=== PATIENT | male | born 1960 | race Caucasian/White ===

== ENCOUNTER → 2017-08-08 | Outpatient (CLI) | payer OTHER ==
[~2017-08-08] MED LIST: NS 100 ML IV 100 ML IV ONE
--- NOTE | 2017-08-08 21:54 | CT ---
CT abdomen and pelvis with IV and oral contrast. Indication: Left lower quadrant pain for 1 week Comparison: None Technique: Following the administration of both oral and IV contrast 5 mm axial images of the abdomen pelvis was performed. Coronal and sagittal reformats were provided from the original data set. Findings: Images of the lower lungs demonstrate tiny bilateral pleural effusions with bibasilar atele ctasis. Images of the subcutaneous tissues are unremarkable. There is atherosclerotic disease of the abdominal aorta without aneurysmal dilatation. The bone windows demonstrate mild multilevel discogeni c degenerative disease without aggressive lesion. Abdomen: The liver, gallbladder, spleen, pancreas and adrenal glands are unremarkable. The kidneys ar e unremarkable except for perinephric stranding. Pelvis: There is subtle mesenteric stranding adjacent to a diverticula seen at the junction of the si gmoid and descending colon. No evidence of abscess or free air is seen. Scattered diverticular are se en. It is there is no free pelvic fluid or adenopathy. The urinary bladder is unremarkable. Conclusion: 1. Subtle stranding adjacent to a sigmoid diverticulum suggest early acute diverticulitis without perforation or abscess. 2. Perinephric stranding is nonspecific considering there is no evidence of pyelonephritis, stone or hydronephrosis. However it may be contributing to the mesenteric stranding seen adjacent to the diver ticulum. Reported By:
== END ==
LOC: RAD 10:25
PROVIDERS: ATTEND Internal Medicine
DX: R10.32 Left lower quadrant pain (principal)
CPT/HCPCS: 74177; A4222

== ENCOUNTER 2017-10-09 13:12 | Emergency (ER) | payer OTHER ==
[2017-10-09 13:23] VITALS: BMI 31.2
--- NOTE | 2017-10-09 14:12 | DR.GENAD ---
HPI - PCP Primary Care Physician: BRENDA - HPI Comment HPI Comment: PATIENT WITH INCREASING EDEMA THAT IS CAUSING PAIN TO LOWER EXTREMITIES AND BP. IN BEING RUNNING HIGH. PTIENT DENIES CHEST PAIN. HAVE SOB. NO FEVER. - Complaint/Symptoms Chief Complaint Doctors Comments: EDEMA LOWER EXTREMITIES AND ELEVATED BP. Chief Complaint:: PT C/O SWELLING TO BILAT LOWER EXT. PT STATES HE HAS BEEN ALOS HAVING HTN. PT'S OCO HAS BEEN CHANGING HIS MEDICATIONS OUT TO TRY AND GET HIS SWELLING AND B/P UNDER CONTROL, BUT PT HAS GAINED 18 LBS IN A MONTH AND PT WENT TO PCP YESTERDAY AND WAS TOLD TO COME TO THE ER DEPT DUE TO THE RESULTS OF A CHEST XRAY THAT WAS TAKEN - Nurses notes reviewed Nurses Notes Review: Yes - Source History Provided: Patient - Mode of Arrival Mode of Arrival: Ambulatory - Timing Onset of Chief Complaint: 10/09/17 Came on: Suddenly - Duration Duration: Constant Duration: Days - Severity Severity: Moderate PMH - PMH Past Medical History: Yes Past Medical History: Diabetes, Dyslipidemia, Hypertension Past Surgical History: No - Family History History of Family Medical Conditions: No - Social History Does any household member use tobacco: No Alcohol Use: DAILY Do you use any recreational Drugs:: No Lives With: Family Lives Where: Home - infectious screening In the last 2 months have you had wt loss of >10#?: NO Have you had fever, night sweats or hemotysis?: No Have you traveled outside the country in the last 6 months?: No Isolation: Standard ROS - Review of Systems Constitutional: Weakness, Fatigue Eyes: negative: Eye Pain, Discharge ENTM: Throat Pain. negative: Ear Pain, Nose Pain, Nose Discharge, Nose Congestion Respiratoy: Non-Productive Cough, Short of Breath. negative: Wheezing, Hemoptysis Cardiovascular: Edema. negative: Chest Pain Gastrointestinal/Abdominal: No Symptoms Reported Genitourinary: No Symptoms Reported Neurological: No Symptoms Reported Musculoskeletal: No Symptoms Reported Integumentary: No Symptoms Reported Hematologic/Lymphatic: No Symptoms Reported Endocrine: No Symptoms Reported All Other Systems: Reviewed and Negative PE - Vital Signs Vitals: Temperature 97.6 F Pulse Rate 81 Respiratory Rate 18 Blood Pressure [Left Arm] 196/93 Blood Pressure 220/100 O2 Sat by Pulse Oximetry 95 - General Limitations: No Limitations General Appearance: Alert - Head Head Exam: Normal Inspection - Eyes Eye exam: Normal Appearance - ENT ENT Exam: Normal External Ear Exam TM/Canal Exam: Bilateral Normal Nose Exam: Normal Nose Exam Mouth Exam: Normal Inspection Throat Exam: Normal Inspection - Neck Neck Exam: Trachea Midline - Chest Chest Inspection: Symmetric Chest Wall Rise - Respiratory Respiratory Exam: Normal Lung Sounds Bilat Respiratory Exam: Bilateral Clear to Auscultation - Cardiovascular Cardiovascular Exam: Regular Rate, Normal Rhythm, Normal Heart Sounds - Abdominal Exam Abdominal Exam: Normal Bowel Sounds, Soft. negative: Tenderness - Extremities Extremities Exam: Edema - Back Back Exam: Normal Inspection - Neurologic Neurological Exam: Alert, Oriented X3 - Psychiatric Psychiatric Exam: Anxious - Skin Skin Exam: Normal Color MDM - Additional Information Additional Information Obtained From: Family - Differential Diagnosis Differential Diagnosis: CHF, PULMONARY EDEMA, BILAT LOWER EXTREMITY EDEMA, PNEUMONIA, MT Course - Treatment Treatment: SEE ORDERS. - Education/Counseling Education/Counseling: Patient, Family, Education Educated On: Treatment, Diagnosis, Needs for Follow Up ROR - Labs Reviewed Laboratory Results Reviewed?: Yes Result Diagrams: 10/09/17 14:44 10/09/17 14:44 Laboratory: WBC 11.6 X10^3/uL (3.6-10.0) H 10/09/17 14:44 RBC 5.06 X10^6/uL (4.7-6.0) 10/09/17 14:44 Hgb 15.1 g/dL (13.5-18.0) 10/09/17 14:44 Hct 44.3 % (42.0-54.0) 10/09/17 14:44 MCV 87.5 fL (80.0-100.0) 10/09/17 14:44 MCH 29.9 pg (27.0-34.0) 10/09/17 14:44 MCHC 34.1 g/dL (33.0-35.0) 10/09/17 14:44 RDW 13.8 % (11.6-16.5) 10/09/17 14:44 Plt Count 391 X10^3/uL (150.0-450.0) 10/09/17 14:44 MPV 7.8 fL (7.4-11.0) 10/09/17 14:44 Neut % 73.9 % (42.0-75.0) 10/09/17 14:44 Lymph % 12.7 % (21.0-51.0) L 10/09/17 14:44 [place]wsley % 10.3 % (0.0-13.0) 10/09/17 14:44 Eos % 2.4 % (0.9-2.9) 10/09/17 14:44 Baso % 0.7 % (0.2-1.0) 10/09/17 14:44 Neut # 8.6 x10^3/uL (2.2-4.8) H 10/09/17 14:44 Lymph # 1.5 X10^3/uL (1.3-2.9) 10/09/17 14:44 [place]wsley # 1.2 x10^3/uL (0.3-0.8) H 10/09/17 14:44 Eos # 0.3 x10^3/uL (0.0-0.2) H 10/09/17 14:44 Baso # 0.1 X10^3/uL (0.0-0.1) 10/09/17 14:44 Absolute Nucleated RBC 0.1 /100WBC 10/09/17 14:44 D-Dimer 1100 ng/mL (0-400) H* 10/09/17 14:44 Sodium 137 mmol/L (136-145) 10/09/17 14:44 Corrected Sodium 138 mmol/L (136-145) 10/09/17 14:44 Potassium 4.3 mmol/L (3.5-5.1) 10/09/17 14:44 Chloride 103 mmol/L (98-107) 10/09/17 14:44 Carbon Dioxide 28.4 mmol/L (21-32) 10/09/17 14:44 BUN 19 mg/dL (7-18) H 10/09/17 14:44 Creatinine 1.36 mg/dL (0.70-1.30) H 10/09/17 14:44 Est GFR (MDRD) Af Amer > 60 (>60) 10/09/17 14:44 Est GFR (MDRD) Non-Af 57 (>60) L 10/09/17 14:44 Glucose 127 mg/dL (65-99) H 10/09/17 14:44 Calcium 9.9 mg/dL (8.5-10.1) 10/09/17 14:44 Corrected Calcium 10.9 mg/dL (8.5-10.1) H 10/09/17 14:44 Total Bilirubin 0.40 mg/dL (0.2-1.0) 10/09/17 14:44 AST 26 Units/L (15-37) 10/09/17 14:44 ALT 34 Units/L (12-78) 10/09/17 14:44 Alkaline Phosphatase 119 Units/L (46-116) H 10/09/17 14:44 Creatine Kinase 219 Units/L (39-308) 10/09/17 14:44 CK-MB (CK-2) 5.3 ng/mL (0-4.0) H* 10/09/17 14:44 CK/CKMB % Calc 2.4 % (<4) 10/09/17 14:44 Troponin I < 0.02 ng/mL (0-1.5) 10/09/17 14:44 B-Natriuretic Peptide 430 pg/mL (0-79) H 10/09/17 14:44 Total Protein 7.8 g/dL (6.4-8.2) 10/09/17 14:44 Albumin 2.7 g/dL (3.4-5.0) L 10/09/17 14:44 Globulin 5.1 g/dL (2.5-4.5) H 10/09/17 14:44 Albumin/Globulin Ratio 0.5 Ratio (1.1-2.1) L 10/09/17 14:44 - XRAY XRAY Interpreted by: Radiologist XRAY Findings: REPORT DISCUSS WITH PATIENT. - EKG Rhythm: NSR (EKG NOTED) - Diagnosis Discharge Problem: Edema Qualifiers: Edema type: unspecified Qualified Code(s): R60.9 - Edema, unspecified CHF (congestive heart failure) Qualifiers: Congestive heart failure type: combined Congestive heart failure chronicity: acute on chronic Qualified Code(s): I50.43 - Acute on chronic combined systolic (congestive) and diastolic (congestive) heart failure Hypertension Qualifiers: Hypertension type: essential hypertension Qualified Code(s): I10 - Essential ( primary) hypertension - Discharge Plan Disposition: HOME, SELF-CARE Condition: Stable Prescriptions: Cefdinir [Omnicef Cap 300 mg] 300 mg PO BID #20 cap Clonidine HCl [CATAPRES 0.1 MG TAB *] 0.1 mg PO BID PRN #60 tab PRN Reason: Furosemide [Lasix] 40 mg PO QAM #30 tab Potassium Chloride 10 meq PO DAILY #30 tab.er.prt - Follow ups/Referrals Follow ups/Referrals: Monty Mccollum [Primary Care Provider] - 3 days - Instructions Instructions: Hypertension, [id number], Heart Failure, [id number], Pneumonitis, Edema, [id number] Additional Instructions: RETURN TO ED IF WORSE.
[2017-10-09 14:52] LABS: BASOPHILS # (AUTO) 0.1 X10^3/uL (0.0-0.1); BASOPHILS % (AUTO) 0.7 % (0.2-1.0); EOSINOPHILS # (AUTO) 0.3 x10^3/uL (0.0-0.2); EOSINOPHILS % (AUTO) 2.4 % (0.9-2.9); HEMATOCRIT 44.3 % (42.0-54.0); HEMOGLOBIN 15.1 g/dL (13.5-18.0); LYMPHOCYTES # (AUTO) 1.5 X10^3/uL (1.3-2.9); LYMPHOCYTES % (AUTO) 12.7 % (21.0-51.0); MEAN CORPUSCULAR HEMOGLOBIN 29.9 pg (27.0-34.0); MEAN CORPUSCULAR HGB CONC 34.1 g/dL (33.0-35.0); MEAN CORPUSCULAR VOLUME 87.5 fL (80.0-100.0); MEAN PLATELET VOLUME 7.8 fL (7.4-11.0); MONOCYTES # (AUTO) 1.2 x10^3/uL (0.3-0.8); MONOCYTES % (AUTO) 10.3 % (0.0-13.0); NEUTROPHILS # (AUTO) 8.6 x10^3/uL (2.2-4.8); NEUTROPHILS % (AUTO) 73.9 % (42.0-75.0); PLATELET COUNT 391 X10^3/uL (150.0-450.0); RED BLOOD COUNT 5.06 X10^6/uL (4.7-6.0); RED CELL DISTRIBUTION WIDTH 13.8 % (11.6-16.5); WHITE BLOOD COUNT 11.6 X10^3/uL (3.6-10.0)
--- NOTE | 2017-10-09 14:56 | RAD ---
Chest, PA and lateral Indication: Cough, lower extremity swelling. Comparison: None Findings: There is borderline enlargement of the cardiac silhouette. The lungs are mildly hypoinflate d but essentially clear without overt edema, dense infiltrate, or pleural effusion. Impression: Borderline cardiomegaly without acute chest process. Reported By:
[2017-10-09 15:17] LABS: BLOOD UREA NITROGEN 19 mg/dL (7-18); CALCIUM 9.9 mg/dL (8.5-10.1); CARBON DIOXIDE 28.4 mmol/L (21-32); CHLORIDE 103 mmol/L (98-107); COR NA(FOR HYPERGLY) 138 mmol/L (136-145); CREATININE 1.36 mg/dL (0.70-1.30); SODIUM 137 mmol/L (136-145); TROPONIN I < 0.02 ng/mL (0-1.5); eGFR BLACK RACES > 60 (>60); eGFR NON BLACK RACES 57 (>60)
[2017-10-09 15:29] LABS: B-TYPE NATRIURETIC PEPTIDE 430 pg/mL (0-79)
[2017-10-09 15:35] LABS: ALANINE AMINOTRANSFERASE 34 Units/L (12-78); ALBUMIN 2.7 g/dL (3.4-5.0); ALKALINE PHOSPHATASE 119 Units/L (46-116); ASPARTATE AMINO TRANSFERASE 26 Units/L (15-37); CKMB % 2.4 % (<4); COR CA(FOR HYPOALB) 10.9 mg/dL (8.5-10.1); CREATINE KINASE 219 Units/L (39-308); TOTAL PROTEIN 7.8 g/dL (6.4-8.2)
[2017-10-09] MEDS ORDERED: CATAPRES TAB 0.2 MG PO ONE (15:38)
[2017-10-09 15:39] LABS: CREATINE KINASE MB 5.3 ng/mL (0-4.0)
[2017-10-09] MEDS ORDERED: LASIX PO ONE (15:39)
[2017-10-09] MEDS ORDERED: CATAPRES TAB 0.2 MG ONE (15:40)
[2017-10-09] MEDS ORDERED: LASIX ONE (15:43)
[2017-10-09 17:07] VITALS: BP 196/93
--- NOTE | 2017-10-09 17:13 | CT ---
CTA chest Indication: Shortness of breath, elevated D-dimer Comparison: None Technique: CT images of the chest were obtained with contrast. Automatic exposure control was utilize d. MIP images provided. Findings: No acute skeletal abnormality. The upper abdomen is unremarkable. The heart size is normal, without significant pericardial thickening or pericardial effusion. No susp icious intrathoracic lymph nodes are identified. The thoracic aorta is grossly normal for technique. No pulmonary arterial filling defect is identified. There are small layering bilateral pleural effusions. There are patchy nodular opacities within the l eft lower lobe with surrounding ground-glass. Additional small scattered nodules are seen within the left lower lobe. There is minimal basilar atelectasis in both lower lobes. Impression: 1. Left lower lobe opacities are most suggestive for pneumonia. Scattered subcentimeter left lower lo be pulmonary nodules are also likely infectious or inflammatory but follow-up CT in 1-3 months is rec ommended to ensure resolution. 2. Small bilateral pleural effusions. 3. No evidence for PTE. Reported By:
[2017-10-09] MEDS ORDERED: NIFEDIPINE CAP 10 MG ONE (17:15)
[2017-10-09] MEDS ORDERED: NIFEDIPINE CAP 10 MG PO ONE (17:19)
[2017-10-09] MEDS ORDERED: LASIX IVP ONE ×2 (17:30→17:37)
[2017-10-09] MEDS ORDERED: ROCEPHIN 1 GM IV PREMIX 1 GM/50 ML IV.SOLN. IV ONE ×2 (17:32→17:38)
[2017-10-09] MEDS ORDERED: NS 100 ML IV 100 ML IV ONE (17:38)
== END 2017-10-09 18:27 | disposition home or self-care (01) ==
LOC: ER 13:32
DX: I50.43 Acute on chronic combined systolic (congestive) and diastolic (congestive) heart failure (principal); I10 Essential (primary) hypertension; R60.9 Edema, unspecified; J90 Pleural effusion, not elsewhere classified
CPT/HCPCS: 36415; 71020; 71275; 80053; 82550; 82553; 83880; 84484; 85025; 85378; 93005; 96365; 96374; 96375; 99283; 99285; A4222; J0696; J1940

== ENCOUNTER 2021-07-02 12:18 | Inpatient (IN) ==
[2021-07-02 12:28] VITALS: BMI 24.3
[2021-07-02] MEDS ORDERED: ZOFRAN INJ 4 MG VIAL IVP ONE (12:35)
--- NOTE | 2021-07-02 12:40 | DR.N/VMALE ---
HPI Time Seen Time Seen by Provider: 07/02/21 12:35 Primary Care Physician Primary Care Physician: Chun Complaints Chief Complaint Doctors Comments: 61 y/o male presents for evaluation. Has been ill since last pm. Having nausea, vomiting, fever and chills. Has vomited x 6. Denies diarrhea or abdominal pain. No URI symptoms. Has not had covid vaccines, Feeling weak. S/p kidney transplant 04/15. Chief Complaint:: Pt c/o n/v and fever since last night. Pt had kidney transplant April 15. COVID-19 Coronavirus risk:travel/contact w/high risk person: No Has patient experienced Coronavirus symptoms: No Coronavirus symptoms experienced: Fever Reviewed Nurses Notes Reviewed: Yes Source History Provided: Patient Mode of Arrival Mode of Arrival: Wheelchair Timing Onset of Chief Complaint: 07/01/21 Severity Number of episodes of vomiting over last 24 hours: 6 Context Onset: Spontaneous Possible Ingestion: Unknown PMH PMH Past Medical History: Yes Past Medical History: Diabetes, Dyslipidemia, Hypertension and Renal Disease Past Surgical History: No Surgical History: Organ Transplant and Tonsillectomy Family History History of Family Medical Conditions: No Social History Does patient currently use any type of tobacco product: No Have you used tobacco products in the last 12 months: No Type of Tobacco Use: None Does any household member use tobacco: No Alcohol Use: None Do you use any recreational Drugs:: No Lives With: Family Lives Where: Home Travel Risk Coronavirus risk:travel/contact w/high risk person: No Has patient experienced Coronavirus symptoms: No Coronavirus symptoms experienced: Fever Infectious screening In the last 2 months have you had wt loss of >10#?: NO Have you had fever, night sweats or hemotysis?: No Have you traveled outside the country in the last 6 months?: No Isolation: Standard ROS Review of Systems Constitutional: Chills, Fever and Weakness Eyes: No Symptoms Reported ENTM: No Symptoms Reported Respiratoy: No Symptoms Reported Cardiovascular: No Symptoms Reported Gastrointestinal/Abdominal: Nausea and Vomiting; negative Abdominal Pain and Diarrhea Genitourinary: No Symptoms Reported Neurological: No Symptoms Reported Musculoskeletal: No Symptoms Reported Integumentary: No Symptoms Reported Hematologic/Lymphatic: No Symptoms Reported Endocrine: No Symptoms Reported Psychiatric: No Symptoms Reported All Other Systems: Reviewed and Negative PE Vital Signs Vitals: Temperature 102.7 F Pulse Rate 83 Respiratory Rate 29 Blood Pressure [Left Arm] 196/93 Blood Pressure 146/65 O2 Sat by Pulse Oximetry 99 General Limitations: No Limitations General Appearance: Alert and In No Apparent Distress Eyes Eye exam: Normal Appearance ENT ENT Exam: Normal Exam Neck Neck Exam: Normal Inspection Chest Chest Inspection: Normal Inspection Respiratory Respiratory Exam: Normal Lung Sounds Bilat; negative Accessory Muscle Use and Respiratory Distress Respiratory Exam: Bilateral: Clear to Auscultation Cardiovascular Cardiovascular Exam: Regular Rate, Normal Rhythm and Normal Heart Sounds Abdominal Exam Abdominal Exam: Normal Inspection and Normal Bowel Sounds; negative Tenderness Extremities Extremities Exam: Normal Inspection and Full ROM; negative Tenderness and Edema Back Back Exam: Normal Inspection Neurologic Neurological Exam: Alert, Oriented X3 and CN II-XII Intact; negative Motor Sensory Deficit Psychiatric Psychiatric Exam: Normal Affect Skin Skin Exam: Warm and Dry MDM Differential Diagnosis Differential Diagnosis: Considerations may Include:: Gastroenteritis Differential Diagnosis Comment: viral illness, SBO, covid infection COURSE Treatment Treatment: Pt ill since last pm - + fever, N/V. Recent kidney transplant pt (2 months ago). W/u initiated, given IV fluids, IV zofran. 181 - w/u concerning for UTI, 30-50 WBCs/hpf on cath specimen. Serum WBC elevated to 22,400. Reported had normal labs last week, Cr bumped to 2.2. Was given additional IV fluids, IV Rocephin. Attempted to transfer pt to [place], where he received his kidney. They are full due to ongoing pandemic. Discussed with his covering transplant surgeon, Dr Stanton. He accepts transfer, but bed not available. Will expand IV coverage with zosyn and vancomycin. Will give cellcept amd steroids IV, Prograf SL at half dose, by opening capsule. Will admit to floor, but likely will be held in the ER. Discussed with Dr. Navarro, accepts the admission here, with transfer to [place] pending. ROR Labs Reviewed Result Diagrams: 07/02/21 12:44 07/02/21 12:44 Laboratory: WBC 22.4 X10^3/uL (3.6-10.0) H 07/02/21 12:44 RBC 3.77 X10^6/uL (4.7-6.0) L 07/02/21 12:44 Hgb 11.0 g/dL (13.5-18.0) L 07/02/21 12:44 Hct 33.4 % (42.0-54.0) L 07/02/21 12:44 MCV 88.6 fL (80.0-100.0) 07/02/21 12:44 MCH 29.3 pg (27.0-34.0) 07/02/21 12:44 MCHC 33.0 g/dL (33.0-35.0) 07/02/21 12:44 RDW 17.1 % (11.6-16.5) H 07/02/21 12:44 Plt Count 200 X10^3/uL (150.0-450.0) 07/02/21 12:44 Plt Count Comment Adequate (ADEQUATE) 07/02/21 12:44 MPV 8.6 fL (7.4-11.0) 07/02/21 12:44 Neut % (Auto) 93.2 % (42.0-75.0) H 07/02/21 12:44 Lymph % (Auto) 0.8 % (21.0-51.0) L 07/02/21 12:44 [place] % (Auto) 5.7 % (0.0-13.0) 07/02/21 12:44 Eos % (Auto) 0.0 % (0.9-2.9) L 07/02/21 12:44 Baso % (Auto) 0.3 % (0.2-1.0) 07/02/21 12:44 Neut # (Auto) 20.9 x10^3/uL (2.2-4.8) H 07/02/21 12:44 Lymph # (Auto) 0.2 X10^3/uL (1.3-2.9) L 07/02/21 12:44 [place] # (Auto) 1.3 x10^3/uL (0.3-0.8) H 07/02/21 12:44 Eos # (Auto) 0.0 x10^3/uL (0.0-0.2) 07/02/21 12:44 Baso # (Auto) 0.1 X10^3/uL (0.0-0.1) 07/02/21 12:44 Absolute Nucleated RBC 0.1 /100WBC 07/02/21 12:44 Total Counted 100 07/02/21 12:44 Neutrophils % (Manual) 91 % (39-76) H 07/02/21 12:44 Band Neutrophils % 3 % (0-10) 07/02/21 12:44 Lymphocytes % (Manual) 2 % (13-43) L 07/02/21 12:44 Monocytes % (Manual) 4 % (4-9) 07/02/21 12:44 Plt Morphology Comment Normal (NORMAL) 07/02/21 12:44 RBC Morphology Normal (NORMAL) 07/02/21 12:44 Sodium 131 mmol/L (136-145) L 07/02/21 12:44 Corrected Sodium 133 mmol/L (136-145) L 07/02/21 12:44 Potassium 5.2 mmol/L (3.5-5.1) H 07/02/21 12:44 Chloride 98 mmol/L (98-107) 07/02/21 12:44 Carbon Dioxide 25.6 mmol/L (21-32) 07/02/21 12:44 BUN 30 mg/dL (7-18) H 07/02/21 12:44 Creatinine 2.19 mg/dL (0.70-1.30) H 07/02/21 12:44 Est GFR (MDRD) Af Amer 39 (>60) L 07/02/21 12:44 Est GFR (MDRD) Non-Af 33 (>60) L 07/02/21 12:44 Glucose 184 mg/dL (65-99) H 07/02/21 12:44 Lactic Acid 1.8 mmol/L (0.4-2.0) 07/02/21 12:44 Calcium 8.8 mg/dL (8.5-10.1) 07/02/21 12:44 Corrected Calcium 9.4 mg/dL (8.5-10.1) 07/02/21 12:44 Total Bilirubin 0.60 mg/dL (0.2-1.0) 07/02/21 12:44 AST 20 Units/L (15-37) 07/02/21 12:44 ALT 30 Units/L (12-78) 07/02/21 12:44 Alkaline Phosphatase 148 Units/L (46-116) H 07/02/21 12:44 Total Protein 7.1 g/dL (6.4-8.2) 07/02/21 12:44 Albumin 3.3 g/dL (3.4-5.0) L 07/02/21 12:44 Globulin 3.8 g/dL (2.5-4.5) 07/02/21 12:44 Albumin/Globulin Ratio 0.9 Ratio (1.1-2.1) L 07/02/21 12:44 Lipase 84 Units/L (73-393) 07/02/21 12:44 Specimen Type Catherized urine 07/02/21 15:49 Urine Color Yellow (YELLOW) 07/02/21 15:49 Urine Appearance Clear (CLEAR) 07/02/21 15:49 Urine pH 5.0 (5.0 - 8.0) 07/02/21 15:49 Ur Specific Wing 1.010 (1.000-1.030) 07/02/21 15:49 Urine Protein 3+ (NEGATIVE) 07/02/21 15:49 Urine Glucose (UA) Negative (NEGATIVE) 07/02/21 15:49 Urine Ketones Negative (NEGATIVE) 07/02/21 15:49 Urine Occult Blood 4+ (NEGATIVE) 07/02/21 15:49 Urine Nitrite Negative (NEGATIVE) 07/02/21 15:49 Urine Bilirubin Negative (NEGATIVE) 07/02/21 15:49 Urine Urobilinogen Normal (NORMAL) 07/02/21 15:49 Ur Leukocyte Esterase 2+ (NEGATIVE) 07/02/21 15:49 Urine RBC 5-10 /HPF (0-3) A 07/02/21 15:49 Urine WBC 30-50 /HPF (0-5) A 07/02/21 15:49 Ur Squamous Epith Cells Rare /HPF (NEGATIVE) 07/02/21 15:49 Urine Bacteria Trace /HPF (NEGATIVE) 07/02/21 15:49 Ur Culture Indicated? Yes/culture set up 07/02/21 15:49 SARS CoV-2 RNA Rapid KVNG Negative (NEGATIVE) 07/02/21 12:50 Opioid Opioid Risk Tool Age (Angel box if 16-45): No History of Preadolescent Sexual Abuse: No Total: 0 Total Score Risk Category: Low Risk Copyright: Jb VUONG predicting aberrant behaviors Diagnosis Discharge Problem: Acute UTI, Renal transplant recipient, Vomiting
[2021-07-02] MEDS ORDERED: ZOFRAN INJ 4 MG VIAL ONE (12:43)
[2021-07-02] MEDS ORDERED: NS 1000 ML 1,000 ML ONE ×3 (12:43→23:12)
[2021-07-02] MEDS: NS 1000 ML 1,000 ML IV ONE ×2 (12:48→16:08)
--- NOTE | 2021-07-02 13:01 | RAD ---
HISTORYFeverSTUDYChest AP [id number] size is normal. Venus are normal. Lung bass are clear. No pleural effusions are identified. Bony thorax is unremarkable.IMPRESSIONNo significant abnormality id entifiedElectronically signed by: DANA SCHULZ (Jul 02, 2021 12:58:56)
[2021-07-02 13:10] LABS: BASOPHILS # (AUTO) 0.1 X10^3/uL (0.0-0.1); BASOPHILS % (AUTO) 0.3 % (0.2-1.0); HEMATOCRIT 33.4 % (42.0-54.0); LYMPHOCYTES # (AUTO) 0.2 X10^3/uL (1.3-2.9); LYMPHOCYTES % (AUTO) 0.8 % (21.0-51.0); MEAN CORPUSCULAR HEMOGLOBIN 29.3 pg (27.0-34.0); MEAN CORPUSCULAR VOLUME 88.6 fL (80.0-100.0); MEAN PLATELET VOLUME 8.6 fL (7.4-11.0); MONOCYTES # (AUTO) 1.3 x10^3/uL (0.3-0.8); MONOCYTES % (AUTO) 5.7 % (0.0-13.0); NEUTROPHILS # (AUTO) 20.9 x10^3/uL (2.2-4.8); NEUTROPHILS % (AUTO) 93.2 % (42.0-75.0); PLATELET COUNT 200 X10^3/uL (150.0-450.0); RED BLOOD COUNT 3.77 X10^6/uL (4.7-6.0); RED CELL DISTRIBUTION WIDTH 17.1 % (11.6-16.5); WHITE BLOOD COUNT 22.4 X10^3/uL (3.6-10.0)
[2021-07-02 13:23] LABS: ALBUMIN 3.3 g/dL (3.4-5.0); CALCIUM 8.8 mg/dL (8.5-10.1); CARBON DIOXIDE 25.6 mmol/L (21-32); COR CA(FOR HYPOALB) 9.4 mg/dL (8.5-10.1); CREATININE 2.19 mg/dL (0.70-1.30); TOTAL PROTEIN 7.1 g/dL (6.4-8.2)
[2021-07-02 13:25] LABS: BAND NEUTROPHILS % 3 % (0-10); PLATELET MORPHOLOGY COMMENT NORMAL (NORMAL)
[2021-07-02 13:27] LABS: LACTIC ACID 1.8 mmol/L (0.4-2.0)
[2021-07-02] MEDS ORDERED: ROCEPHIN 1 GRAM IV PREMIX 1 G/50 ML IV.SOLN. IV ONE ×2 (13:54→14:01)
[2021-07-02] MEDS ORDERED: OFIRMEV IV 1000 MG VIAL 1,000 MG/100 ML VIAL IV ONE ×2 (15:48→15:54)
[2021-07-02 16:02] LABS: BILIRUBIN,URINE NEGATIVE (NEGATIVE); BLOOD/HEMOGLOBIN,URINE 4+ (NEGATIVE); GLUCOSE, URINE NEGATIVE (NEGATIVE); KETONES,URINE NEGATIVE (NEGATIVE); LEUKOCYTE ESTERASE ,URINE 2+ (NEGATIVE); NITRITES,URINE NEGATIVE (NEGATIVE); PROTEIN,URINE 3+ (NEGATIVE); UROBILINOGEN,URINE NORMAL (NORMAL)
[2021-07-02 16:08] LABS: APPEARANCE,URINE CLEAR (CLEAR); COLOR,URINE YELLOW (YELLOW)
[2021-07-02 16:09] LABS: BACTERIA,URINE TRACE /HPF (NEGATIVE); SQUAMOUS EPITHELIAL CELL,UR RARE /HPF (NEGATIVE)
[2021-07-02] MEDS ORDERED: PHENERGAN INJ 25 MG IM ONE ×2 (16:19→17:08)
--- NOTE | 2021-07-02 17:23 | CT ---
EXAM: CT ABDOMEN AND PELVIS WITHOUT INTRAVENOUS CONTRASTHISTORY: Vomiting. Fever. Transplant kidney.TECHNIQUE: Spiral axial CT images are obtained through the abdomen and pelvis without the administration of intravenous contrast. Additional coronal and sagittal reformatted images are reconstructed.DOSIMETRY: Total DLP 679.4 mGycm; CTDI 11.7 mGyCOMPARISON: None available.FINDINGS:GENITOURINARY SYSTEM: A Murray balloon catheter is seen within a partially collapsed urinary bladder. There is up to 1.3 cm circumferential thickening of the urinary bladder wall with pericystic stranding which may represent sequela of collapsed state and/or cystitis in the appropriate clinical setting. Clinical correlation is advised. The right pelvic transplant kidney is noted, with mild perinephric stranding; cannot rule out infectious process/pyelonephritis in the appropriate clinical setting. There are bubbles are seen within the transplant kidney renal collecting system and the urinary bladder lumen, presumed iatrogenic change from Murray catheter introduction; DDx includes cystitis with gas producing organism in the appropriate clinical setting. There is mild streaky interstitial fluid seen in the perinephric fascia of the jackson kidneys; nonspecific finding; cannot rule out sequela of infectious process/pyelonephritis in the appropriate clinical setting. No evidence for renal calculi, urolithiasis, or hydronephrosis/hydroureter is seen within the jackson kidneys or pelvic transplant kidney. No urinoma is seen. The prostate gland and seminal vesicles appear grossly unremarkable for a noncontrast CT scan.GASTROINTESTINAL TRACT: There is no evidence for bowel herniation, bowel obstruction, appendicitis, colitis or diverticulitis. Abundant fecal material is seen within the large bowel loops; nonspecific finding; rule out constipation.CT ABDOMEN: Aortoiliac atherosclerotic disease, without aneurysm formation. The liver, spleen, pancreas, adrenal glands, gallbladder, and inferior vena cava are within normal limits for a noncontrast CT scan. There is no intra-abdominal or retroperitoneal lymphadenopathy, free fluid, or free air seen. No abdominal herniation is noted.CT PELVIS: Multilevel DDD is seen throughout the visualized distal thoracic spine and lumbar spine. The visualized bony structures are otherwise within normal limits. No pelvic sidewall or inguinal lymphadenopathy is seen. No inguinal herniation is noted. No free fluid or free air is seen.LUNG BASES: The lung bases are clear.IMPRESSION:1. Up to 1.3 cm circumferential thickening of the urinary bladder wall with pericystic stranding which may represent sequela of collapsed state (secondary to Murray catheter in situ) and/or cystitis in the appropriate clinical setting. Clinical correlation is advised.2. Right pelvic transplant kidney is noted, with mild perinephric stranding; cannot rule out infectious process/pyelonephritis in the appropriate clinical setting.3. Bubbles are seen within the transplant kidney renal collecting system and the urinary bladder lumen, presumed iatrogenic change from Murray catheter introduction; DDx includes cystitis with gas producing organism in the appropriate clinical setting.4. Mild streaky interstitial fluid seen in the perinephric fascia of the jackson kidneys; nonspecific finding; cannot rule out sequela of infectious process/pyelonephritis in the appropriate clinical setting.5. No evidence for renal calculi, urolithiasis, or hydronephrosis/hydroureter is seen within the jackson kidneys or pelvic transplant kidney. No urinoma is seen.6. Abundant fecal material is seen within the large bowel loops; nonspecific finding; rule out constipation.7. No evidence for acute appendicitis, bowel herniation/obstruction, colitis or diverticulitis seen.8. No free fluid, free air, mass lesions, or lymphadenopathy seen.Electronically signed by: Chester Barahona (Jul 02, 2021 17:21:33)
[2021-07-02] MEDS ORDERED: ZOSYN VIAL 3.375 GRAMS 3.375 G in NS 50 ML IV + SPIKE MINIBAG* 50 ML IV ONE (18:18)
[2021-07-02] MEDS ORDERED: VANCOMYCIN IV *PREMIX 1 G/200 ML BAG 1 G/200 ML PIGGYBACK IV ONE ×2 (18:19→23:12)
[2021-07-02] MEDS ORDERED: VANCOMYCIN IV *PREMIX 1 G/200 ML BAG 1 G/200 ML PIGGYBACK IV SCH (19:50)
[2021-07-02] MEDS ORDERED: ZOSYN VIAL 3.375 GRAMS IV ONE (19:56)
[2021-07-02] MEDS: NS 100 ML IV + SPIKE MINIBAG* 100 ML IV ONE ×2 (20:23→23:30)
[2021-07-02] MEDS: ZOSYN VIAL 3.375 GRAMS 3.375 G in NS 50 ML IV + SPIKE MINIBAG* 50 ML IV SCH ×2 (20:25→23:23)
[2021-07-02] MEDS ORDERED: SOLU-Medrol 40 MG VIAL ONE (23:12)
[2021-07-02] MEDS: NS 1000 ML 1,000 ML IV SCH ×2 (23:21→23:23)
[2021-07-02] MEDS: SOLU-Medrol 40 MG VIAL IVP SCH (23:42)
[2021-07-02] MEDS ORDERED: TYLENOL 325 MG TAB PO PRN (23:43)
[2021-07-02] MEDS ORDERED: TYLENOL 325 MG TAB PO ONE (23:46)
[2021-07-03] MEDS ORDERED: ZOSYN VIAL 3.375 GRAMS IV ONE (05:28)
[2021-07-03] MEDS ORDERED: SOLU-Medrol 40 MG VIAL ONE ×2 (05:28→14:24)
[2021-07-03] MEDS ORDERED: NS 50 ML IV + SPIKE MINIBAG* 50 ML IV ONE (05:29)
[2021-07-03] MEDS ORDERED: NS 1000 ML 1,000 ML ONE ×4 (05:31→14:25)
[2021-07-03] MEDS: SOLU-Medrol 40 MG VIAL IVP SCH ×3 (06:34→21:30)
[2021-07-03] MEDS: NS 1000 ML 1,000 ML IV SCH ×3 (06:35→22:09)
[2021-07-03] MEDS: ZOSYN VIAL 3.375 GRAMS 3.375 G in NS 50 ML IV + SPIKE MINIBAG* 50 ML IV SCH ×2 (06:35→22:16)
[2021-07-03 06:47] LABS: BASOPHILS % (AUTO) 0 % (0.2-1.0); HEMATOCRIT 30.1 % (42.0-54.0); HEMOGLOBIN 9.9 g/dL (13.5-18.0); LYMPHOCYTES # (AUTO) 0.2 X10^3/uL (1.3-2.9); LYMPHOCYTES % (AUTO) 1.3 % (21.0-51.0); MEAN CORPUSCULAR HEMOGLOBIN 29.2 pg (27.0-34.0); MEAN CORPUSCULAR HGB CONC 32.8 g/dL (33.0-35.0); MEAN PLATELET VOLUME 8.7 fL (7.4-11.0); MONOCYTES # (AUTO) 0.3 x10^3/uL (0.3-0.8); MONOCYTES % (AUTO) 1.4 % (0.0-13.0); NEUTROPHILS # (AUTO) 18.4 x10^3/uL (2.2-4.8); NEUTROPHILS % (AUTO) 97.3 % (42.0-75.0); PLATELET COUNT 137 X10^3/uL (150.0-450.0); RED BLOOD COUNT 3.39 X10^6/uL (4.7-6.0); RED CELL DISTRIBUTION WIDTH 17.4 % (11.6-16.5); WHITE BLOOD COUNT 18.9 X10^3/uL (3.6-10.0)
[2021-07-03 07:00] LABS: ALBUMIN 2.4 g/dL (3.4-5.0); CARBON DIOXIDE 18.2 mmol/L (21-32); COR CA(FOR HYPOALB) 9.3 mg/dL (8.5-10.1); CREATININE 2.54 mg/dL (0.70-1.30); TOTAL PROTEIN 6.2 g/dL (6.4-8.2)
[2021-07-03 07:33] LABS: BAND NEUTROPHILS % 2 % (0-10); PLATELET MORPHOLOGY COMMENT NORMAL (NORMAL)
[2021-07-03] MEDS ORDERED: NS 1000 ML 1,000 ML IV ONE ×2 (09:31)
[2021-07-03] MEDS: PATIENT'S HOME MEDICATION (Mycophenolate Mofetil 500 mg tablet) PO SCH ×3 (09:35→21:31)
[2021-07-03] MEDS ORDERED: PROTONIX TAB 40 MG PO ONE (09:39)
[2021-07-03] MEDS ORDERED: LOPRESSOR TAB 25 MG ONE (09:39)
[2021-07-03] MEDS ORDERED: FLOMAX ONE (09:39)
[2021-07-03] MEDS ORDERED: NEURONTIN CAP 100 MG ONE ×2 (09:40→14:24)
[2021-07-03] MEDS: NEURONTIN CAP 100 MG PO SCH ×3 (10:20→21:29)
[2021-07-03] MEDS: LOPRESSOR TAB 25 MG PO SCH ×3 (10:20→21:31)
[2021-07-03] MEDS: PROTONIX TAB 40 MG PO SCH (10:21)
[2021-07-03] MEDS: ZOLOFT PO SCH (10:21)
[2021-07-03] MEDS: FLOMAX PO SCH (10:22)
--- NOTE | 2021-07-03 11:26 | DR.H&P ---
H&P - History & Physical for Day of: H&P Date: 07/02/21 - Chief Complaint Chief Complaint: WEAKNESS, NAUSEA, VOMITING, FEVER - History of Present Illness History of Present Illness: IS A 61 YEAR OLD PATIENT OF OURS. HE PRESENTED TO THE ER WITH COMPLAINTS OF NAUSEA, VOMITING, AND FEVER X 1 DAY. PATIENT ADMITS TO WEAKNESS AND VOMITING 6 TIMES IN THE LAST 24 HOURS. HE DENIES DIARRHEA OR ABDOMINAL PAIN. 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 HE IS CATHETERIZED DAILY AT HOME. OTHER PMH INCLUDES DM II, DYSLIPIDEMIA, HTN, RENAL DISEASE, AND TONSILLECTOMY. ON ARRIVAL TO THE ER, VITALS WERE 100.2-92-20-100%-131/60. LABS WERE OBTAINED. ABNORMAL LAB VALUES INCLUDE THE FOLLOWING: WBC 22.4, RBC 3.77, HGB 11.0, HCT 33.4, SODIUM 131, POTASSIUM 5.2, BUN 30, CREATININE 2.19, GLUCOSE 184, ALK PHOS 148, ALBUMIN 3.3. URINALYSIS WAS OBTAINED AND REVEALED: WBC 30-50, RBC 5-10, LEUKOCYTES 2+, BACTERIA TRACE, PROTEIN 3+, OCCULT BLOOD 4+. A URINE CULTURE AND BLOOD CULTURES X 2 WERE SET UP. COVID-19 NEGATIVE. A CHEST XRAY WAS OBTAINED AND REVEALED: No significant abnormality identified. AN ABDOMEN/PELVIS CT WITHOUT CONTRAST WAS OBTAINED AND REVEALED: 1. Up to 1.3 cm circumferential thickening of the urinary bladder wall with pericystic stranding which may represent sequela of collapsed state (secondary to Jade catheter in situ) and/or cystitis in the appropriate clinical setting. 2. Right pelvic transplant kidney is noted, with mild perinephric stranding; cannot rule out infectious process/pyelonephritis in the appropriate clinical setting. 3. Bubbles are seen within the transplant kidney renal collecting system and the urinary bladder lumen, presumed iatrogenic change from Jade catheter introduction; DDx includes cystitis with gas producing organism in the appropriate clinical setting. 4. Mild streaky interstitial fluid seen in the perinephric fascia of the [place] kidneys; nonspecific finding; cannot rule out sequela of infectious process/pyelonephritis in the appropriate clinical setting. 5. No evidence for renal calculi, urolithiasis, or hydronephrosis/hydroureter is seen within the [place] kidneys or pelvic transplant kidney. No urinoma is seen. 6. Abundant fecal material is seen within the large bowel loops; nonspecific finding; rule out constipation. 7. No evidence for acute appendicitis, bowel herniation/obstruction, colitis or diverticulitis seen. 8. No free fluid, free air, mass lesions, or lymphadenopathy seen. IN THE ER, HE WAS GIVEN TWO 1 LITER NORMAL SALINE BOLUSES, ZOFRAN 4MG IV X 1, ROCEPHIN 1G IV X 1, TYLENOL 1000MG IV X 1, PHENERGAN 12.5MG IM X 1. A JADE CATHETER WAS INSERTED TO BEDSIDE DRAINAGE. THE ER PHYSICIAN SPOKE WITH [facility] AT [facility]. NO BEDS ARE AVAILABLE FOR TRANSFER AT THIS TIME. PATIENT WAS ADMITTED FOR FURTHER EVALUATION AND TREATMENT OF UTI, VOMITING, S/P RENAL TRANSPLANT. HE WAS STARTED ON NORMAL SALINE @ 125ML/HR, ZOSYN 3.375G IV BID, VANCOMYCIN 1G IV HS, SOLU-MEDROL 80MG IV Q8H. WE WILL REVIEW HIS HOME MEDICATIONS AND RESUME APPROPRIATE. OTHERWISE, WE PLAN TO FOLLOW UP WITH AM LABS AND CONTINUE TO MONITOR. TIME SPENT ON CLINICAL ASSESSMENT, REVIEWING LABS AND IMAGING, DECISION MAKING, AND DOCUMENTATION GREATER THAN 75 MINUTES. - Past Medical History Past Medical History: Hypertension, Dyslipidemia, Diabetes, Renal Disease - Past Surgical History Surgical History: Organ Transplant, Tonsillectomy - Social History Does patient currently use any type of tobacco product: No Have you used tobacco products in the last 12 months: No Type of Tobacco Use: None Does any household member use tobacco: No Alcohol Use: None - Medications Home Medications: No Known Drug Allergies Allergy (Verified 10/09/17 16:10) CONTINUE taking the following medications aspirin 81 mg PO ONCE 07/02/21 [History] atorvastatin 20 mg PO QHS 07/02/21 [History] doxazosin 4 mg PO QHS 07/02/21 [History] gabapentin 100 mg PO TID 07/02/21 [History] glipizide 5 mg PO DAILY 07/02/21 [History] insulin glargine [Lantus U-100 Insulin] 25 unit SUBCUT QHS 07/02/21 [History] insulin lispro 14 unit SUBCUT TID 07/02/21 [History] magnesium oxide 400 mg PO DAILY 07/02/21 [History] metoprolol tartrate 12.5 mg PO BID 07/02/21 [History] mycophenolate mofetil 1,000 mg PO BID 07/02/21 [History] pantoprazole 40 mg PO DAILY 07/02/21 [History] sennosides-docusate sodium [Stool Softener-Laxative] 1 tab PO BID 07/02/21 [History] sertraline 50 mg PO DAILY 07/02/21 [History] sodium zirconium cyclosilicate [Lokelma] 5 g PO Q OTHER DAY 07/02/21 [History] sulfamethoxazole-trimethoprim [Bactrim] 1 tab PO DAILY 07/02/21 [History] tacrolimus 0.5 mg PO BID 07/02/21 [History] tacrolimus 4 mg PO BID 07/02/21 [History] tamsulosin 0.8 mg PO DAILY 07/02/21 [History] insulin detemir U-100 [Levemir FlexTouch U-100 Insuln] 25 unit SUBCUT HS 07/03/21 [History] - Review of Systems Constitutional: Fever, Chills, Weakness Eyes: No Symptoms Reported ENT: No Symptoms Reported Respiratory: No Symptoms Reported Cardiovascular: No Symptoms Reported Gastrointestinal: Nausea, Vomiting Genitourinary: No Symptoms Reported Musculoskeletal: No Symptoms Reported Skin: No Symptoms Reported Neurological: No Symptoms Reported - Physical Exam Vital Signs: Temperature 98.2 F Pulse Rate [Apical] 62 Pulse Rate 83 Respiratory Rate 20 Blood Pressure [Left Arm] 118/58 Blood Pressure 146/65 O2 Sat by Pulse Oximetry 100 Oriented: Normal Eyes: Normal Ear: Normal Nose: Normal Throat: Normal Respiratory: Diminished Throughout Cardiovascular: Normal : Normal Auscultation: Bowel Sounds: Normal Palpation: Normal Tenderness: Normal Skin: Normal Musculoskeletal: Normal Psychiatric: Normal Mood Description: Calm Affect: Normal Speech Pattern: Clear - Assessment/Plan (1) Acute UTI Status: Acute Plan: ADMIT, NORMAL SALINE @ 125ML/HR, ZOSYN 3.375G IV BID, VANCOMYCIN 1G IV HS, SOLU-MEDROL 80MG IV Q8H. REVIEW HOME MEDICATIONS (2) Nausea and vomiting Qualifiers: Vomiting type: unspecified Vomiting Intractability: intractable Qualified Code(s): R11.2 - Nausea with vomiting, unspecified Status: Acute (3) Renal transplant recipient Status: Acute - Allergies Allergies/Adverse Reactions: Allergies Allergy/AdvReac Type Severity Reaction Status Date / Time No Known Drug Allergies Allergy Verified 10/09/17 16:10
[2021-07-03] MEDS ORDERED: MULTIVITAMIN PO SCH (11:45)
[2021-07-03] MEDS ORDERED: HumuLIN R ONE (16:26)
[2021-07-03] MEDS: MAG-OX TAB PO SCH (16:44)
[2021-07-03] MEDS: HumuLIN R SUBCUT PRN ×2 (16:44→21:45)
[2021-07-03] MEDS ORDERED: VANCOMYCIN IV *PREMIX 1 G/200 ML BAG 1 G/200 ML PIGGYBACK IV SCH (21:00)
[2021-07-03] MEDS: SNACK - Diabetic Appropriate PO SCH (21:28)
[2021-07-03] MEDS: CARDURA PO SCH (21:29)
[2021-07-03] MEDS: LIPITOR TAB 20 MG PO SCH (21:29)
[2021-07-03] MEDS: PATIENT'S HOME MEDICATION PO SCH (21:30)
[2021-07-03] MEDS: LANTUS SC SCH (21:34)
[2021-07-04] MEDS: NS 1000 ML 1,000 ML IV SCH ×3 (04:42→20:33)
[2021-07-04 06:09] LABS: BASOPHILS % (AUTO) 0.1 % (0.2-1.0); HEMATOCRIT 30.9 % (42.0-54.0); HEMOGLOBIN 10.1 g/dL (13.5-18.0); LYMPHOCYTES # (AUTO) 0.2 X10^3/uL (1.3-2.9); LYMPHOCYTES % (AUTO) 1.3 % (21.0-51.0); MEAN CORPUSCULAR HEMOGLOBIN 29.4 pg (27.0-34.0); MEAN CORPUSCULAR HGB CONC 32.7 g/dL (33.0-35.0); MEAN PLATELET VOLUME 9.1 fL (7.4-11.0); MONOCYTES # (AUTO) 0.7 x10^3/uL (0.3-0.8); MONOCYTES % (AUTO) 5.1 % (0.0-13.0); NEUTROPHILS # (AUTO) 12.5 x10^3/uL (2.2-4.8); NEUTROPHILS % (AUTO) 93.5 % (42.0-75.0); PLATELET COUNT 152 X10^3/uL (150.0-450.0); RED BLOOD COUNT 3.43 X10^6/uL (4.7-6.0); RED CELL DISTRIBUTION WIDTH 17.3 % (11.6-16.5); WHITE BLOOD COUNT 13.3 X10^3/uL (3.6-10.0)
[2021-07-04 06:11] LABS: ALBUMIN 2.4 g/dL (3.4-5.0); CARBON DIOXIDE 17.4 mmol/L (21-32); COR CA(FOR HYPOALB) 9.3 mg/dL (8.5-10.1); CREATININE 2.32 mg/dL (0.70-1.30); TOTAL PROTEIN 6.1 g/dL (6.4-8.2)
[2021-07-04] MEDS ORDERED: NEURONTIN CAP 100 MG ONE ×2 (06:36→12:15)
[2021-07-04] MEDS ORDERED: SOLU-Medrol 40 MG VIAL ONE ×2 (06:36→12:15)
[2021-07-04] MEDS: NEURONTIN CAP 100 MG PO SCH ×3 (06:47→21:22)
[2021-07-04] MEDS: SOLU-Medrol 40 MG VIAL IVP SCH ×3 (06:47→21:22)
[2021-07-04] MEDS: HumuLIN R SUBCUT PRN ×3 (06:48→17:06)
[2021-07-04] MEDS ORDERED: HumuLIN R ONE ×2 (06:50→12:17)
[2021-07-04 06:57] LABS: BAND NEUTROPHILS % 6 % (0-10); PLATELET MORPHOLOGY COMMENT NORMAL (NORMAL)
[2021-07-04] MEDS ORDERED: ZOSYN VIAL 3.375 GRAMS IV ONE (08:30)
[2021-07-04] MEDS ORDERED: PROTONIX TAB 40 MG PO ONE (08:30)
[2021-07-04] MEDS ORDERED: LOPRESSOR TAB 25 MG ONE (08:30)
[2021-07-04] MEDS ORDERED: NS 100 ML IV + SPIKE MINIBAG* 100 ML IV ONE (08:30)
[2021-07-04] MEDS ORDERED: FLOMAX ONE (08:30)
[2021-07-04] MEDS: FLOMAX PO SCH (08:47)
[2021-07-04] MEDS: ZOSYN VIAL 3.375 GRAMS 3.375 G in NS 50 ML IV + SPIKE MINIBAG* 50 ML IV SCH ×2 (08:47→21:22)
[2021-07-04] MEDS: MAG-OX TAB PO SCH (08:49)
[2021-07-04] MEDS: ZOLOFT PO SCH (08:49)
[2021-07-04] MEDS: TAB-A-VITE PO SCH (08:51)
[2021-07-04] MEDS: LOPRESSOR TAB 25 MG PO SCH ×2 (08:52→20:33)
[2021-07-04] MEDS: PATIENT'S HOME MEDICATION (Mycophenolate Mofetil 500 mg tablet) PO SCH ×2 (08:52→20:34)
[2021-07-04] MEDS: PATIENT'S HOME MEDICATION PO SCH ×2 (08:52→20:36)
[2021-07-04] MEDS: PROTONIX TAB 40 MG PO SCH (08:52)
[2021-07-04] MEDS ORDERED: NORVASC TAB 5 MG ONE (10:58)
[2021-07-04] MEDS: NORVASC TAB 5 MG PO SCH (11:21)
--- NOTE | 2021-07-04 11:35 | PCM.PROG ---
Progress Note - Progress Note for Day of Date of Exam: 07/04/21 - Subjective Subjective: WAS ADMITTED FOR TREATMENT OF UTI, FEVER, N/F. HE IS STATUS POST RIGHT RENAL TRANSPLANT ON 04/15/21. TODAY, HE IS ALERT AND ORIENTED, LYING IN BED ON MORNING ROUNDS. HE REPORTS MILD LOWER ABDOMINAL PAIN, BUT DENIES NAUSEA/VOMITING. ON EXAMINATION, HEART IS REGULAR IN RATE AND RHYTHM. BILATERAL LUNGS ARE IRENE TO AUSCULTATION. ABDOMEN IS ROUND, SOFT, AND NOTED WITH MILD SUPRAPUBIC TENDERNESS. NORMAL BOWEL SOUNDS ARE NOTED IN ALL QUADRANTS. THERE IS A JADE CATHETER NOTED TO BEDSIDE DRAINAGE. HIS VITALS THIS MORNING ARE: 98.4-61-26-97%-199/84. LABS WERE OBTAINED. ABNORMAL LAB VALUES INCLUDE THE FOLLOWING: WBC 13.3, RBC 3.43, HGB 10.1, HCT 30.9, SODIUM 131, CARBON DIOXIDE 17.4, BUN 57, CREATININE 2.32, GLUCOSE 375, CALCIUM 8.0, TOTAL PROTEIN 6.1, ALBUMIN 2.4. BLOOD AND URINE CULTURES REVEAL GROWTH OF GRAM NEGATIVE RODS. HE IS CURRENTLY RECEIVING NORMAL SALINE @ 125ML/HR, ZOSYN 3.375G IV BID, VANCOMYCIN 1G IV HS, SOLU-MEDROL 80MG IV Q8H, AND HIS HOME MEDICATIONS. TODAY, WE WILL DISCONTINUE THE VANCOMYCIN AND ADD LEVAQUIN 750MG IV Q48H. WE WILL ALSO ADD NORVASC 5MG PO DAILY. OTHERWISE, WE PLAN TO FOLLOW UP WITH AM LABS AND CONTINUE TO MONITOR. TIME SPENT ON CLINICAL ASSESSMENT, REVIEWING LABS AND IMAGING, DECISION MAKING, AND DOCUMENTATION GREATER THAN 45 MINUTES. - Past Medical Family Social History Past Med/Fam/Surg Hx: No changes since H&P Allergies: Allergies No Known Drug Allergies Allergy (Verified 10/09/17 16:10) - Review of Systems ROS: No change since H&P - Vital Signs and I&O's Vital Signs: Temperature 98.4 F Pulse Rate [Apical] 61 Pulse Rate 83 Respiratory Rate 26 Blood Pressure [Right Arm] 199/84 Blood Pressure [Left Arm] 167/79 Blood Pressure 146/65 O2 Sat by Pulse Oximetry 97 Intake and Output: Intake & Output 07/01/21 07/02/21 07/03/21 07/04/21 11:59 11:59 11:59 11:59 Intake Total 1950 / 1950 5450 / 5450 Output Total 600 / 600 1800 / 1800 Balance 1350 / 1350 3650 / 3650 - Physical Exam Oriented: Normal Eyes: Normal Ear: Normal Nose: Normal Throat: Normal Respiratory: Normal Cardiovascular: Normal : Normal Auscultation: Bowel Sounds: Normal Palpation: Normal Tenderness: Normal Skin: Normal Musculoskeletal: Normal Psychiatric: Normal Mood Description: Calm Affect: Normal Speech Pattern: Clear - Laboratory and Diagnostics Result Diagrams: 07/04/21 05:19 07/04/21 05:19 Labs: 07/02/21 12:44 Blood Blood Culture - Preliminary 07/02/21 12:52 Blood Blood Culture - Preliminary 07/02/21 15:49 Urine,Catheterized Urine Culture - Preliminary Laboratory WBC 13.3 X10^3/uL (3.6-10.0) H 07/04/21 05:19 RBC 3.43 X10^6/uL (4.7-6.0) L 07/04/21 05:19 Hgb 10.1 g/dL (13.5-18.0) L 07/04/21 05:19 Hct 30.9 % (42.0-54.0) L 07/04/21 05:19 MCV 90.0 fL (80.0-100.0) 07/04/21 05:19 MCH 29.4 pg (27.0-34.0) 07/04/21 05:19 MCHC 32.7 g/dL (33.0-35.0) L 07/04/21 05:19 RDW 17.3 % (11.6-16.5) H 07/04/21 05:19 Plt Count 152 X10^3/uL (150.0-450.0) 07/04/21 05:19 Plt Count Comment Adequate (ADEQUATE) 07/04/21 05:19 MPV 9.1 fL (7.4-11.0) 07/04/21 05:19 Neut % (Auto) 93.5 % (42.0-75.0) H 07/04/21 05:19 Lymph % (Auto) 1.3 % (21.0-51.0) L 07/04/21 05:19 Hood % (Auto) 5.1 % (0.0-13.0) 07/04/21 05:19 Eos % (Auto) 0.0 % (0.9-2.9) L 07/04/21 05:19 Baso % (Auto) 0.1 % (0.2-1.0) L 07/04/21 05:19 Neut # (Auto) 12.5 x10^3/uL (2.2-4.8) H 07/04/21 05:19 Lymph # (Auto) 0.2 X10^3/uL (1.3-2.9) L 07/04/21 05:19 Hood # (Auto) 0.7 x10^3/uL (0.3-0.8) 07/04/21 05:19 Eos # (Auto) 0.0 x10^3/uL (0.0-0.2) 07/04/21 05:19 Baso # (Auto) 0.0 X10^3/uL (0.0-0.1) 07/04/21 05:19 Absolute Nucleated RBC 0.0 /100WBC 07/04/21 05:19 Total Counted 100 07/04/21 05:19 Neutrophils % (Manual) 91 % (39-76) H 07/04/21 05:19 Band Neutrophils % 6 % (0-10) 07/04/21 05:19 Lymphocytes % (Manual) 1 % (13-43) L 07/04/21 05:19 Monocytes % (Manual) 2 % (4-9) L 07/04/21 05:19 Plt Morphology Comment Normal (NORMAL) 07/04/21 05:19 RBC Morphology Normal (NORMAL) 07/04/21 05:19 Sodium 131 mmol/L (136-145) L 07/04/21 05:19 Corrected Sodium 138 mmol/L (136-145) 07/04/21 05:19 Potassium 5.1 mmol/L (3.5-5.1) 07/04/21 05:19 Chloride 101 mmol/L (98-107) 07/04/21 05:19 Carbon Dioxide 17.4 mmol/L (21-32) L 07/04/21 05:19 BUN 57 mg/dL (7-18) H 07/04/21 05:19 Creatinine 2.32 mg/dL (0.70-1.30) H 07/04/21 05:19 Est GFR (MDRD) Af Amer 37 (>60) L 07/04/21 05:19 Est GFR (MDRD) Non-Af 30 (>60) L 07/04/21 05:19 Glucose 375 mg/dL (65-99) H 07/04/21 05:19 POC Glucose (mg/dL) 324 mg/dL (65-99) H 07/04/21 06:41 Lactic Acid 1.8 mmol/L (0.4-2.0) 07/02/21 12:44 Calcium 8.0 mg/dL (8.5-10.1) L 07/04/21 05:19 Corrected Calcium 9.3 mg/dL (8.5-10.1) 07/04/21 05:19 Total Bilirubin 0.50 mg/dL (0.2-1.0) 07/04/21 05:19 AST 21 Units/L (15-37) 07/04/21 05:19 ALT 29 Units/L (12-78) 07/04/21 05:19 Alkaline Phosphatase 90 Units/L (46-116) 07/04/21 05:19 Total Protein 6.1 g/dL (6.4-8.2) L 07/04/21 05:19 Albumin 2.4 g/dL (3.4-5.0) L 07/04/21 05:19 Globulin 3.7 g/dL (2.5-4.5) 07/04/21 05:19 Albumin/Globulin Ratio 0.6 Ratio (1.1-2.1) L 07/04/21 05:19 Lipase 84 Units/L (73-393) 07/02/21 12:44 Specimen Type Catherized urine 07/02/21 15:49 Urine Color Yellow (YELLOW) 07/02/21 15:49 Urine Appearance Clear (CLEAR) 07/02/21 15:49 Urine pH 5.0 (5.0 - 8.0) 07/02/21 15:49 Ur Specific [place] 1.010 (1.000-1.030) 07/02/21 15:49 Urine Protein 3+ (NEGATIVE) 07/02/21 15:49 Urine Glucose (UA) Negative (NEGATIVE) 07/02/21 15:49 Urine Ketones Negative (NEGATIVE) 07/02/21 15:49 Urine Occult Blood 4+ (NEGATIVE) 07/02/21 15:49 Urine Nitrite Negative (NEGATIVE) 07/02/21 15:49 Urine Bilirubin Negative (NEGATIVE) 07/02/21 15:49 Urine Urobilinogen Normal (NORMAL) 07/02/21 15:49 Ur Leukocyte Esterase 2+ (NEGATIVE) 07/02/21 15:49 Urine RBC 5-10 /HPF (0-3) A 07/02/21 15:49 Urine WBC 30-50 /HPF (0-5) A 07/02/21 15:49 Ur Squamous Epith Cells Rare /HPF (NEGATIVE) 07/02/21 15:49 Urine Bacteria Trace /HPF (NEGATIVE) 07/02/21 15:49 Ur Culture Indicated? Yes/culture set up 07/02/21 15:49 SARS CoV-2 RNA Rapid KVNG Negative (NEGATIVE) 07/02/21 12:50 - Plan (1) Acute UTI Status: Acute Plan: NORMAL SALINE @ 125ML/HR, ZOSYN 3.375G IV BID, LEVAQUIN 750MG IV Q48H, SOLU-MEDROL 80MG IV Q8H. RESUME HOME MEDICATIONS (2) Sepsis Status: Acute Qualifiers: Sepsis type: sepsis due to unspecified organism Sepsis acute organ dysfunction status: with acute organ dysfunction Severe sepsis acute organ dysfunction type: unspecified Severe sepsis shock status: unspecified Qualified Code(s): A41.9 - Sepsis, unspecified organism; R65.20 - Severe sepsis without septic shock (3) Nausea and vomiting Status: Acute Qualifiers: Vomiting type: unspecified Vomiting Intractability: intractable Qualified Code(s): R11.2 - Nausea with vomiting, unspecified (4) Renal transplant recipient Status: Acute
[2021-07-04] MEDS ORDERED: LEVAQUIN PREMIX IV 750 MG 750 MG/150 ML BAG IV SCH (12:00)
[2021-07-04] MEDS ORDERED: LEVAQUIN PREMIX IV 750 MG 750 MG/150 ML BAG IV ONE (12:16)
[2021-07-04] MEDS ORDERED: BUTT CREAM (COMPOUND) EXT PRN (13:07)
[2021-07-04] MEDS: SNACK - Diabetic Appropriate PO SCH (20:32)
[2021-07-04] MEDS: CARDURA PO SCH (20:33)
[2021-07-04] MEDS: LIPITOR TAB 20 MG PO SCH (20:33)
[2021-07-04] MEDS: LANTUS SC SCH (21:23)
[2021-07-05] MEDS: NS 1000 ML 1,000 ML IV SCH ×3 (04:20→20:40)
[2021-07-05] MEDS: NEURONTIN CAP 100 MG PO SCH ×3 (05:27→21:00)
[2021-07-05] MEDS: SOLU-Medrol 40 MG VIAL IVP SCH ×3 (05:27→20:59)
[2021-07-05 06:21] LABS: ALBUMIN 2.2 g/dL (3.4-5.0); CALCIUM 8.1 mg/dL (8.5-10.1); CARBON DIOXIDE 18.4 mmol/L (21-32); COR CA(FOR HYPOALB) 9.5 mg/dL (8.5-10.1); CREATININE 1.93 mg/dL (0.70-1.30); TOTAL PROTEIN 5.9 g/dL (6.4-8.2)
[2021-07-05 06:31] LABS: BASOPHILS % (AUTO) 0.1 % (0.2-1.0); HEMATOCRIT 30.2 % (42.0-54.0); HEMOGLOBIN 10.1 g/dL (13.5-18.0); LYMPHOCYTES # (AUTO) 0.1 X10^3/uL (1.3-2.9); LYMPHOCYTES % (AUTO) 1.3 % (21.0-51.0); MEAN CORPUSCULAR HEMOGLOBIN 29.5 pg (27.0-34.0); MEAN CORPUSCULAR HGB CONC 33.5 g/dL (33.0-35.0); MEAN CORPUSCULAR VOLUME 88.2 fL (80.0-100.0); MEAN PLATELET VOLUME 9.5 fL (7.4-11.0); MONOCYTES # (AUTO) 0.5 x10^3/uL (0.3-0.8); MONOCYTES % (AUTO) 5.9 % (0.0-13.0); NEUTROPHILS # (AUTO) 7.2 x10^3/uL (2.2-4.8); NEUTROPHILS % (AUTO) 92.7 % (42.0-75.0); PLATELET COUNT 180 X10^3/uL (150.0-450.0); RED BLOOD COUNT 3.43 X10^6/uL (4.7-6.0); WHITE BLOOD COUNT 7.8 X10^3/uL (3.6-10.0)
[2021-07-05 07:38] LABS: PLATELET MORPHOLOGY COMMENT NORMAL (NORMAL)
[2021-07-05] MEDS: TAB-A-VITE PO SCH (09:22)
[2021-07-05] MEDS: PROTONIX TAB 40 MG PO SCH (09:22)
[2021-07-05] MEDS: MAG-OX TAB PO SCH (09:23)
[2021-07-05] MEDS: FLOMAX PO SCH (09:23)
[2021-07-05] MEDS: ZOLOFT PO SCH (09:23)
[2021-07-05] MEDS: NORVASC TAB 5 MG PO SCH (09:23)
[2021-07-05] MEDS: LOPRESSOR TAB 25 MG PO SCH ×2 (09:24→20:53)
[2021-07-05] MEDS: PATIENT'S HOME MEDICATION (Mycophenolate Mofetil 500 mg tablet) PO SCH ×2 (09:29→20:53)
[2021-07-05] MEDS: PATIENT'S HOME MEDICATION PO SCH ×2 (09:29→20:38)
--- NOTE | 2021-07-05 11:30 | PCM.PROG ---
Progress Note - Progress Note for Day of Date of Exam: 07/05/21 - Subjective Subjective: WAS ADMITTED FOR TREATMENT OF UTI, FEVER, N/F. HE IS STATUS POST RIGHT RENAL TRANSPLANT ON 04/15/21. TODAY, HE IS ALERT AND ORIENTED, LYING IN BED ON MORNING ROUNDS. HE REPORTS MILD LOWER ABDOMINAL PAIN, BUT DENIES NAUSEA/VOMITING. HE DOES ADMIT TO SLIGHT IMPROVEMENT IN SYMPTOMS TODAY. ON EXAMINATION, HEART IS REGULAR IN RATE AND RHYTHM. BILATERAL LUNGS ARE IRENE TO AUSCULTATION. ABDOMEN IS ROUND, SOFT, AND NOTED WITH MILD SUPRAPUBIC TENDERNESS. NORMAL BOWEL SOUNDS ARE NOTED IN ALL QUADRANTS. THERE IS A JADE CATHETER NOTED TO BEDSIDE DRAINAGE. HIS VITALS THIS MORNING ARE: 98.5-60-20-97%-190/77. LABS WERE OBTAINED. ABNORMAL LAB VALUES INCLUDE THE FOLLOWING: RBC 3.43, HGB 10.1, HCT 30.2, SODIUM 133, CARBON DIOXIDE 18.4, BUN 53, CREATININE 1.93, GLUCOSE 276, CALCIUM 8.1, TOTAL PROTEIN 5.9, ALBUMIN 2.2. BLOOD AND URINE CULTURES REVEAL GROWTH OF PROVIDENCIA RETTGERI. IT IS SENSITIVE TO THE LEVAQUIN THAT HE IS ON. HE IS CURRENTLY RECEIVING NORMAL SALINE @ 125ML/HR, ZOSYN 3.375G IV BID, VANCOMYCIN 1G IV HS, SOLU-MEDROL 80MG IV Q8H, NORVASC 5 MG PO DAILY, AND HIS HOME MEDICATIONS. TODAY, WE WILL DISCONTINUE THE ZOSYN. OTHERWISE, WE PLAN TO FOLLOW UP WITH AM LABS AND CONTINUE TO MONITOR. TIME SPENT ON CLINICAL ASSESSMENT, REVIEWING LABS AND IMAGING, DECISION MAKING, AND DOCUMENTATION GREATER THAN 45 MINUTES. - Past Medical Family Social History Past Med/Fam/Surg Hx: No changes since H&P Allergies: Allergies No Known Drug Allergies Allergy (Verified 10/09/17 16:10) - Review of Systems ROS: No change since H&P - Vital Signs and I&O's Vital Signs: Temperature 98.5 F Pulse Rate [Apical] 60 Pulse Rate 83 Respiratory Rate 20 Blood Pressure [Right Arm] 190/77 Blood Pressure [Left Arm] 167/79 Blood Pressure 146/65 O2 Sat by Pulse Oximetry 97 Intake and Output: Intake & Output 07/02/21 07/03/21 07/04/21 07/05/21 11:59 11:59 11:59 11:59 Intake Total 1950 / 1950 5450 / 5450 2505 / 2505 Output Total 600 / 600 1800 / 1800 3400 / 3400 Balance 1350 / 1350 3650 / 3650 -895 / -895 - Physical Exam Oriented: Normal Eyes: Normal Ear: Normal Nose: Normal Throat: Normal Respiratory: Normal Cardiovascular: Normal : Normal Auscultation: Bowel Sounds: Normal Palpation: Normal Tenderness: Normal Skin: Normal Musculoskeletal: Normal Psychiatric: Normal Mood Description: Calm Affect: Normal Speech Pattern: Clear - Laboratory and Diagnostics Result Diagrams: 07/05/21 04:05 07/05/21 04:05 Labs: 07/02/21 15:49 Urine,Catheterized Urine Culture - Final [facility]ger[facility] 07/02/21 12:52 Blood Blood Culture - Final [facility] Rettgeri 07/02/21 12:44 Blood Blood Culture - Final [facility] Rettger[facility] Laboratory WBC 7.8 X10^3/uL (3.6-10.0) 07/05/21 04:05 RBC 3.43 X10^6/uL (4.7-6.0) L 07/05/21 04:05 Hgb 10.1 g/dL (13.5-18.0) L 07/05/21 04:05 Hct 30.2 % (42.0-54.0) L 07/05/21 04:05 MCV 88.2 fL (80.0-100.0) 07/05/21 04:05 MCH 29.5 pg (27.0-34.0) 07/05/21 04:05 MCHC 33.5 g/dL (33.0-35.0) 07/05/21 04:05 RDW 17.0 % (11.6-16.5) H 07/05/21 04:05 Plt Count 180 X10^3/uL (150.0-450.0) 07/05/21 04:05 Plt Count Comment Adequate (ADEQUATE) 07/05/21 04:05 MPV 9.5 fL (7.4-11.0) 07/05/21 04:05 Neut % (Auto) 92.7 % (42.0-75.0) H 07/05/21 04:05 Lymph % (Auto) 1.3 % (21.0-51.0) L 07/05/21 04:05 Weber % (Auto) 5.9 % (0.0-13.0) 07/05/21 04:05 Eos % (Auto) 0.0 % (0.9-2.9) L 07/05/21 04:05 Baso % (Auto) 0.1 % (0.2-1.0) L 07/05/21 04:05 Neut # (Auto) 7.2 x10^3/uL (2.2-4.8) H 07/05/21 04:05 Lymph # (Auto) 0.1 X10^3/uL (1.3-2.9) L 07/05/21 04:05 Weber # (Auto) 0.5 x10^3/uL (0.3-0.8) 07/05/21 04:05 Eos # (Auto) 0.0 x10^3/uL (0.0-0.2) 07/05/21 04:05 Baso # (Auto) 0.0 X10^3/uL (0.0-0.1) 07/05/21 04:05 Absolute Nucleated RBC 0.0 /100WBC 07/05/21 04:05 Total Counted 100 07/05/21 04:05 Neutrophils % (Manual) 94 % (39-76) H 07/05/21 04:05 Band Neutrophils % 6 % (0-10) 07/04/21 05:19 Lymphocytes % (Manual) 3 % (13-43) L 07/05/21 04:05 Monocytes % (Manual) 3 % (4-9) L 07/05/21 04:05 Plt Morphology Comment Normal (NORMAL) 07/05/21 04:05 RBC Morphology Normal (NORMAL) 07/05/21 04:05 Sodium 133 mmol/L (136-145) L 07/05/21 04:05 Corrected Sodium 137 mmol/L (136-145) 07/05/21 04:05 Potassium 4.5 mmol/L (3.5-5.1) 07/05/21 04:05 Chloride 104 mmol/L (98-107) 07/05/21 04:05 Carbon Dioxide 18.4 mmol/L (21-32) L 07/05/21 04:05 BUN 53 mg/dL (7-18) H 07/05/21 04:05 Creatinine 1.93 mg/dL (0.70-1.30) H 07/05/21 04:05 Est GFR (MDRD) Af Amer 46 (>60) L 07/05/21 04:05 Est GFR (MDRD) Non-Af 38 (>60) L 07/05/21 04:05 Glucose 276 mg/dL (65-99) H 07/05/21 04:05 POC Glucose (mg/dL) 259 mg/dL (65-99) H 07/05/21 05:33 Lactic Acid 1.8 mmol/L (0.4-2.0) 07/02/21 12:44 Calcium 8.1 mg/dL (8.5-10.1) L 07/05/21 04:05 Corrected Calcium 9.5 mg/dL (8.5-10.1) 07/05/21 04:05 Total Bilirubin 0.40 mg/dL (0.2-1.0) 07/05/21 04:05 AST 21 Units/L (15-37) 07/05/21 04:05 ALT 40 Units/L (12-78) 07/05/21 04:05 Alkaline Phosphatase 76 Units/L (46-116) 07/05/21 04:05 Total Protein 5.9 g/dL (6.4-8.2) L 07/05/21 04:05 Albumin 2.2 g/dL (3.4-5.0) L 07/05/21 04:05 Globulin 3.7 g/dL (2.5-4.5) 07/05/21 04:05 Albumin/Globulin Ratio 0.6 Ratio (1.1-2.1) L 07/05/21 04:05 Lipase 84 Units/L (73-393) 07/02/21 12:44 Specimen Type Catherized urine 07/02/21 15:49 Urine Color Yellow (YELLOW) 07/02/21 15:49 Urine Appearance Clear (CLEAR) 07/02/21 15:49 Urine pH 5.0 (5.0 - 8.0) 07/02/21 15:49 Ur Specific [place] 1.010 (1.000-1.030) 07/02/21 15:49 Urine Protein 3+ (NEGATIVE) 07/02/21 15:49 Urine Glucose (UA) Negative (NEGATIVE) 07/02/21 15:49 Urine Ketones Negative (NEGATIVE) 07/02/21 15:49 Urine Occult Blood 4+ (NEGATIVE) 07/02/21 15:49 Urine Nitrite Negative (NEGATIVE) 07/02/21 15:49 Urine Bilirubin Negative (NEGATIVE) 07/02/21 15:49 Urine Urobilinogen Normal (NORMAL) 07/02/21 15:49 Ur Leukocyte Esterase 2+ (NEGATIVE) 07/02/21 15:49 Urine RBC 5-10 /HPF (0-3) A 07/02/21 15:49 Urine WBC 30-50 /HPF (0-5) A 07/02/21 15:49 Ur Squamous Epith Cells Rare /HPF (NEGATIVE) 07/02/21 15:49 Urine Bacteria Trace /HPF (NEGATIVE) 07/02/21 15:49 Ur Culture Indicated? Yes/culture set up 07/02/21 15:49 SARS CoV-2 RNA Rapid KVNG Negative (NEGATIVE) 07/02/21 12:50 - Plan (1) Acute UTI Status: Acute Plan: NORMAL SALINE @ 125ML/HR, ZOSYN 3.375G IV BID, LEVAQUIN 750MG IV Q48H, SOLU-MEDROL 80MG IV Q8H. RESUME HOME MEDICATIONS (2) Sepsis Status: Acute Qualifiers: Sepsis type: sepsis due to unspecified organism Sepsis acute organ dysfunction status: with acute organ dysfunction Severe sepsis acute organ dysfunction type: unspecified Severe sepsis shock status: unspecified Qualified Code(s): A41.9 - Sepsis, unspecified organism; R65.20 - Severe sepsis without septic shock (3) Nausea and vomiting Status: Acute Qualifiers: Vomiting type: unspecified Vomiting Intractability: intractable Qualified Code(s): R11.2 - Nausea with vomiting, unspecified (4) Acute kidney injury Status: Acute (5) Renal transplant recipient Status: Acute
[2021-07-05] MEDS: HumuLIN R SUBCUT PRN ×3 (12:23→20:41)
[2021-07-05] MEDS: LOVENOX INJ 30 MG SYR SC SCH (17:30)
[2021-07-05] MEDS ORDERED: PHARMACY COMMENT IV ONE (20:30)
[2021-07-05] MEDS: CARDURA PO SCH (20:37)
[2021-07-05] MEDS: LIPITOR TAB 20 MG PO SCH (20:37)
[2021-07-05] MEDS: SNACK - Diabetic Appropriate PO SCH (20:39)
[2021-07-05] MEDS: LANTUS SC SCH (20:40)
[2021-07-05 22:58] LABS: CREATININE 1.88 mg/dL (0.70-1.30); VANCOMYCIN,TROUGH 6.4 ug/mL (15-20)
[2021-07-06] MEDS: NEURONTIN CAP 100 MG PO SCH (05:34)
[2021-07-06] MEDS: SOLU-Medrol 40 MG VIAL IVP SCH (05:34)
[2021-07-06] MEDS: NS 1000 ML 1,000 ML IV SCH (06:19)
[2021-07-06] MEDS: HumuLIN R SUBCUT PRN (06:20)
[2021-07-06 06:53] LABS: ALBUMIN 2.1 g/dL (3.4-5.0); CALCIUM 8.1 mg/dL (8.5-10.1); CARBON DIOXIDE 19.4 mmol/L (21-32); COR CA(FOR HYPOALB) 9.6 mg/dL (8.5-10.1); CREATININE 1.74 mg/dL (0.70-1.30); TOTAL PROTEIN 5.5 g/dL (6.4-8.2)
[2021-07-06 06:56] LABS: BASOPHILS % (AUTO) 0.5 % (0.2-1.0); HEMATOCRIT 31.3 % (42.0-54.0); HEMOGLOBIN 10.5 g/dL (13.5-18.0); LYMPHOCYTES # (AUTO) 0.1 X10^3/uL (1.3-2.9); LYMPHOCYTES % (AUTO) 1.7 % (21.0-51.0); MEAN CORPUSCULAR HEMOGLOBIN 29.3 pg (27.0-34.0); MEAN CORPUSCULAR HGB CONC 33.6 g/dL (33.0-35.0); MEAN CORPUSCULAR VOLUME 87.2 fL (80.0-100.0); MEAN PLATELET VOLUME 9.1 fL (7.4-11.0); MONOCYTES # (AUTO) 0.4 x10^3/uL (0.3-0.8); MONOCYTES % (AUTO) 6.1 % (0.0-13.0); NEUTROPHILS # (AUTO) 6.6 x10^3/uL (2.2-4.8); NEUTROPHILS % (AUTO) 91.7 % (42.0-75.0); PLATELET COUNT 196 X10^3/uL (150.0-450.0); RED CELL DISTRIBUTION WIDTH 16.7 % (11.6-16.5); WHITE BLOOD COUNT 7.2 X10^3/uL (3.6-10.0)
[2021-07-06 07:33] LABS: BAND NEUTROPHILS % 2 % (0-10); PLATELET MORPHOLOGY COMMENT NORMAL (NORMAL)
[2021-07-06 09:15] VITALS: BP 119/53
[2021-07-06] MEDS: FLOMAX PO SCH (09:16)
[2021-07-06] MEDS: LOVENOX INJ 30 MG SYR SC SCH (09:16)
[2021-07-06] MEDS: NORVASC TAB 5 MG PO SCH (09:17)
[2021-07-06] MEDS: MAG-OX TAB PO SCH (09:17)
[2021-07-06] MEDS: PROTONIX TAB 40 MG PO SCH (09:17)
[2021-07-06] MEDS: TAB-A-VITE PO SCH (09:18)
[2021-07-06] MEDS: ZOLOFT PO SCH (09:19)
[2021-07-06] MEDS: LOPRESSOR TAB 25 MG PO SCH (09:20)
[2021-07-06] MEDS: PATIENT'S HOME MEDICATION (Mycophenolate Mofetil 500 mg tablet) PO SCH (09:49)
[2021-07-06] MEDS: PATIENT'S HOME MEDICATION PO SCH (09:49)
== END 2021-07-06 11:40 | disposition home or self-care (01) | DRG 872 ==
LOC: ER 12:18 → U 19:50 → MED/SURG 07-04 14:54
PROVIDERS: ADMIT Internal Medicine; ATTEND Internal Medicine
DX: Z20.822 Contact with and (suspected) exposure to COVID-19; N17.8 Other acute kidney failure; R65.20 Severe sepsis without septic shock; E78.2 Mixed hyperlipidemia; E11.65 Type 2 diabetes mellitus with hyperglycemia; B96.89 Other specified bacterial agents as the cause of diseases classified elsewhere; I10 Essential (primary) hypertension; Z94.0 Kidney transplant status; R11.2 Nausea with vomiting, unspecified; N39.0 Urinary tract infection, site not specified; A41.59 Other Gram-negative sepsis